=== PATIENT | female | born 2000 | race African-American/Black ===

== ENCOUNTER 2019-04-19 01:38 | Inpatient (IN) ==
[2019-04-19 02:06] LABS: Apearance,Urine CLEAR (Clear); Bacteria,Urine Occasional /HPF (Few); Bilirubin,Urine Negative (Negative); Blood, Urine Negative (Negative); Glucose,Urine (UA) Negative (Negative); Ketones,Urine Negative (Negative); Nitrite,Urine Negative (Negative); Protein,Urine Negative; Squamous Epithelial Cell,Urine Occasional /HPF (0-10); Urine Color Straw (Yellow); Urine Specific Gravity 1.005 (1.001-1.035); Urine Urobilinogen < 2.0 EU/DL (0.2-1.0); WBC,Urine 3 /HPF (0-6)
[2019-04-19] MEDS ORDERED: ONDANSETRON 4 MG/2 ML VIAL IV ONE (03:53)
[2019-04-19] MEDS ORDERED: BUTORPHANOL 2 MG/ML VIAL IV ONE (03:53)
[2019-04-19] MEDS ORDERED: LACTATED RINGERS 1,000 ML IV SCH (04:00)
[2019-04-19] MEDS ORDERED: ONDANSETRON 4 MG/2 ML VIAL IV PRN (08:03)
[2019-04-19] MEDS ORDERED: PROMETHAZINE 25 MG/1 ML VIAL IM ONE (08:05)
[2019-04-19] MEDS ORDERED: hydrOXYzine HCL 25 MG/1 ML VIAL IM PRN (08:05)
[2019-04-19] MEDS ORDERED: CITRIC ACID/SODIUM CITRATE 30 ML UDCUP PO ONE (08:05)
[2019-04-19] MEDS ORDERED: diphenhydrAMINE 50 MG/1 ML VIAL IV PRN ×2 (08:05)
[2019-04-19] MEDS ORDERED: FAMOTIDINE 20 MG/2 ML VIAL IV ONE ×2 (08:05→15:53)
[2019-04-19] MEDS ORDERED: LACTATED RINGERS 1,000 ML IV ONE (08:05)
[2019-04-19] MEDS ORDERED: NALOXONE 0.4 MG/ML VIAL IV PRN (08:05)
[2019-04-19] MEDS ORDERED: ePHEDrine 50 MG/ML AMP IV PRN (08:05)
[2019-04-19 08:43] LABS: Basophils % 0.3 % (0.0-0.8); Eosinophils % 0.4 % (0.00-10.9); Hematocrit 32.4 VOL% (35.7-47.0); Hemoglobin 10.3 GM/DL (12.0-16.0); Immature Granulocytes % 0.8 %; Immature Granulocytes Absolute 0.08 #; Lymphocytes # 2.2 10*3/uL (1.4-4.0); Mean Corpuscular HGB Conc 31.8 GM/DL (32-36); Mean Corpuscular Volume 83.3 FL (87-102); Mean Platelet Volume 11.5 FL (9.6-12.0); Neutrophils % 69.5 % (38.7-73.9); Platelet Count 142 T/CUMM (130-400); Red Blood Count 3.89 MC/CUMM (3.8-5.5); Red Cell Distribution Width 13.2 % (9.3-17.3); White Blood Count 10.2 T/CUMM (4-12)
[2019-04-19] MEDS: OXYTOCIN/LR 20 UNIT/1,000 ML BAG IV SCH (08:51)
[2019-04-19 09:09] LABS: Albumin 2.6 G/DL (3.4-5.0); Bilirubin,Total 0.4 MG/DL (0.2-1.0); Osmolality,Calculated 274.4 MOS/KG (273-304); Total Protein 7.3 G/DL (6.4-8.3)
[2019-04-19] MEDS: BUTORPHANOL 2 MG/ML VIAL IV PRN ×2 (11:05→14:22)
[2019-04-19] MEDS ORDERED: miSOPROStol 200 MCG TABLET ONE (14:15)
[2019-04-19] MEDS ORDERED: LIDOCAINE 1% 50 ML VIAL ONE (14:15)
[2019-04-19] MEDS ORDERED: METHYLERGONOVINE 0.2 MG/1 ML AMP ONE (14:16)
[2019-04-19] MEDS ORDERED: CARBOPROST TROMETHAMINE 250 MCG/ML AMP IM ONE (14:16)
[2019-04-19] MEDS ORDERED: CITRIC ACID/SODIUM CITRATE 30 ML UDCUP ONE (15:52)
[2019-04-19] MEDS: fentaNYL 2 MCG/ROPIV 0.2% EPID 100 ML EPIDURAL SCH ×2 (16:30→23:13)
[2019-04-19] MEDS ORDERED: OXYTOCIN 10 UNIT/ML VIAL ONE (18:40)
[2019-04-19 18:57] LABS: Cord Arterial Blood HCO3 20.9 MMOL/L
[2019-04-19 19:00] LABS: Cord Venous Blood PCO2 41.8 MMHG; Cord Venous Blood PO2 33.6
[2019-04-19] MEDS ORDERED: RHO(D) IMMUNE GLOBULIN 300 MCG SYRINGE IM ONE (21:44)
[2019-04-19] MEDS ORDERED: WITCH HAZEL PADS 100/JAR TOP PRN (21:44)
[2019-04-19] MEDS ORDERED: MEASLES/MUMPS/RUBELLA VACCINE 0.5 ML VIAL SUBCUT ONE (21:44)
[2019-04-19] MEDS ORDERED: BISACODYL 10 MG SUPP RECTAL PRN (21:44)
[2019-04-19] MEDS ORDERED: LANOLIN 50% CREAM 0.3 OZ TUBE TOP PRN (21:44)
[2019-04-19] MEDS ORDERED: HYDROCORTISONE 2.5% RECTAL CREAM 30 GM TUBE TOP PRN (21:44)
[2019-04-19] MEDS ORDERED: ACETAMINOPHEN 325 MG TABLET PO SCH (21:44)
[2019-04-19] MEDS ORDERED: BENZOCAINE 20%/MENTHOL 0.5% SPRAY 56 GM CAN TOP PRN (21:44)
[2019-04-19] MEDS ORDERED: DIPH/TET/ACEL PERT BOOSTER VACCINE 0.5 ML VIAL IM ONE (21:44)
[2019-04-19] MEDS: DOCUSATE SODIUM 100 MG CAPSULE PO SCH (22:24)
[2019-04-19] MEDS: KETOROLAC 30 MG/1 ML VIAL IV SCH (22:24)
[2019-04-19] MEDS: LACTATED RINGERS 1,000 ML IV SCH (23:11)
[2019-04-20] MEDS: KETOROLAC 30 MG/1 ML VIAL IV SCH ×2 (04:45→17:20)
[2019-04-20 05:11] LABS: Basophils % 0.1 % (0.0-0.8); Eosinophils % 0.1 % (0.00-10.9); Hematocrit 27.7 VOL% (35.7-47.0); Immature Granulocytes % 0.5 %; Immature Granulocytes Absolute 0.07 #; Lymphocytes # 2.5 10*3/uL (1.4-4.0); Lymphocytes % 17.6 % (21.3-54.2); Mean Corpuscular HGB Conc 32.5 GM/DL (32-36); Mean Corpuscular Volume 81.7 FL (87-102); Monocytes % 7.7 % (1.7-12.7); Platelet Count 128 T/CUMM (130-400); Red Blood Count 3.39 MC/CUMM (3.8-5.5); Red Cell Distribution Width 13.1 % (9.3-17.3); White Blood Count 14.2 T/CUMM (4-12)
[2019-04-20] MEDS: FERROUS SULFATE 325 MG TABLET PO SCH (09:24)
[2019-04-20] MEDS: DOCUSATE SODIUM 100 MG CAPSULE PO SCH ×2 (09:24→21:48)
[2019-04-20] MEDS: MULTIVITAMIN (PRENATAL) TABLET PO SCH (09:25)
[2019-04-20] MEDS ORDERED: IBUPROFEN 800 MG TABLET ONE (17:21)
[2019-04-20] MEDS: IBUPROFEN 800 MG TABLET PO SCH ×2 (17:26→20:20)
[2019-04-21] MEDS: IBUPROFEN 800 MG TABLET PO SCH (04:48)
[2019-04-21] MEDS: OXYTOCIN/LR 20 UNIT/1,000 ML BAG IV SCH (04:48)
[2019-04-21 07:13] VITALS: BP 118/58
[2019-04-21] MEDS: MULTIVITAMIN (PRENATAL) TABLET PO SCH (08:15)
[2019-04-21] MEDS: DOCUSATE SODIUM 100 MG CAPSULE PO SCH (08:16)
[2019-04-21] MEDS: FERROUS SULFATE 325 MG TABLET PO SCH (08:16)
[2019-04-21] MEDS ORDERED: ACETAMINOPHEN 500 MG TABLET PO PRN (08:23)
== END 2019-04-21 13:10 | disposition home or self-care (01) | DRG 807 ==
LOC: N.LDOUT 01:38 → N.LD 01:40 → N.OB 21:42
PROVIDERS: ADMIT Obstetrics & Gynecology; ATTEND Obstetrics & Gynecology